=== PATIENT | female | born 1950 | race African-American/Black ===

== ENCOUNTER 2017-04-25 10:10 | Observation (INO) | payer OTHER ==
[2017-04-25] MEDS ORDERED: SODIUM CHLORIDE 0.9% 1,000 ML IV STA (10:58)
[2017-04-25] MEDS ORDERED: MORPHINE SULFATE 4 MG/ML SYRINGE IV STA ×2 (10:58→12:41)
[2017-04-25] MEDS ORDERED: ONDANSETRON ODT 4 MG TAB PO STA (10:58)
[2017-04-25 11:49] LABS: Basophils % (A) 0 %; CH 32.4; CHCM 32.9; Eosinophils # (A) 0.1 k/uL (0-0.7); Eosinophils % (A) 1 %; HCT 42.5 % (34.0-46.0); HDW 2.39; HGB 13.8 gm/dL (11.4-16.0); Luc # (Auto) 0.11; Luc % (Auto) 1; Lymphocytes # (A) 3.8 k/uL (1.0-4.8); Lymphocytes % (A) 44 %; MCH 32.2 pg (25.0-35.0); MCHC 32.5 g/dL (31.0-37.0); Mean Platelet Volume 8.4; Monocytes # (A) 0.4 k/uL (0-1.0); Monocytes % (A) 4 %; Neutrophils # (A) 4.4 k/uL (1.3-7.7); Neutrophils % (A) 50 %; RBC 4.29 m/uL (3.80-5.40); RDW 14.8 % (11.5-15.5); WBC 8.8 k/uL (3.8-10.6); WBC (Perox) 8.38
--- NOTE | 2017-04-25 11:53 | XR ---
EXAMINATION TYPE: XR chest 2V DATE OF EXAM: 04/25/2017 COMPARISON: 12/26/2015 HISTORY: Chest pain and back pain for 3 days with no known injury TECHNIQUE: Frontal and lateral views of the chest are obtained. FINDINGS: There is no focal air space opacity, pleural effusion, or pneumothorax seen. The cardiac silhouette size is within normal limits. The osseous structures are intact. IMPRESSION: No acute cardiopulmonary process.
[2017-04-25 12:02] LABS: ALT 28 U/L (9-52); AST 17 U/L (14-36); Alkaline Phosphatase 64 U/L (38-126); Anion Gap 5 mmol/L; Blood Urea Nitrogen 15 mg/dL (7-17); Calcium 9.2 mg/dL (8.4-10.2); Carbon Dioxide 30 mmol/L (22-30); Chloride 107 mmol/L (98-107); Glucose 85 mg/dL (74-99); Non-African American GFR(MDRD) >60 (>60 ml/min/1.73 sqM); Potassium 3.9 mmol/L (3.5-5.1); Sodium 142 mmol/L (137-145); Total Bilirubin 0.3 mg/dL (0.2-1.3); Total Protein 6.5 g/dL (6.3-8.2)
[2017-04-25] MEDS ORDERED: NITROGLYCERIN OINT 1 INCH/GM PACKET TOPICAL STA (12:41)
--- NOTE | 2017-04-25 12:50 | ED ---
General Adult HPI - General Chief complaint: Back Pain/Injury Stated complaint: back pain Time Seen by Provider: 04/25/17 10:29 Source: patient Mode of arrival: wheelchair Limitations: no limitations - History of Present Illness Initial comments: X-ray 6 years old lady with history of CVA, hypertension and history of Coumadin toxicity presented with right-sided chest pain, pain is worse with deep breaths. She denies any trauma to the chest wall, no fall no car accidents. Eyes any fever no chills she is not coughing up a bunch of phlegm and she denies any rash on the anterior or posterior chest wall. Review of systems are otherwise unremarkable - Related Data Home Medications Medication Instructions Recorded Confirmed Amitriptyline HCl [Elavil] 100 mg PO HS 12/25/15 04/25/17 Gabapentin [Neurontin] 300 mg PO BID 12/25/15 04/25/17 HYDROcodone/APAP 7.5-325MG [[place] 1 tab PO BID PRN 12/25/15 04/25/17 7.5-325] amLODIPine BESYLATE [Norvasc] 10 mg PO DAILY 12/25/15 04/25/17 Docusate [Colace] 100 mg PO BID PRN 04/25/17 04/25/17 Ergocalciferol [Vitamin D2] 50,000 unit PO TH 04/25/17 04/25/17 Oxybutynin ER [Ditropan Xl] 10 mg PO DAILY 04/25/17 04/25/17 Allergies Allergy/AdvReac Type Severity Reaction Status Date / Time Penicillins Allergy Rash/Hives- Verified 04/25/17 10:54 SWELLS UP AT SITE Review of Systems ROS Statement: Those systems with pertinent positive or pertinent negative responses have been documented in the HPI. ROS Other: All systems not noted in ROS Statement are negative. Past Medical History Past Medical History: Asthma, CVA/TIA, Hyperlipidemia, Hypertension, Musculoskeletal Disorder, Pulmonary Embolus (PE) Additional Past Medical History / Comment(s): HX PE 2009? 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 ELBOW CROOKED- POOR CHANNELER OUTSOLE STRENGTH. YURIY FEET TOES AMPUTATED- HARD TO WALK FAR. ARTHRITIS History of Any Multi-Drug Resistant Organisms: None Reported Past Surgical History: Hysterectomy, Orthopedic Surgery Additional Past Surgical History / Comment(s): YURIY. FEET TOES AMPUTATED R/T OLMSTEAD BITE. Benign tumors removed from breast and shoulder. Past Anesthesia/Blood Transfusion Reactions: No Reported Reaction Past Psychological History: No Psychological Hx Reported Smoking Status: Current some day smoker Past Alcohol Use History: Occasional Past Drug Use History: None Reported - Past Family History Father Family Medical History: CVA/TIA, Hypertension, Myocardial Infarction ([place]) Mother Family Medical History: CVA/TIA, Diabetes Mellitus, Hypertension, Myocardial Infarction ([place]) Sister(s) Additional Family Medical History / Comment(s): Sister #1-Cerebal Palsy , Sister #2 DM, HTN, General Exam - General Exam Comments Initial Comments: General: The patient is awake and alert, in no distress, and does not appear acutely ill. Skin: Skin is warm and dry and no rashes or lesions are noted. Eye: Pupils are equal, round and reactive to light, extra-ocular movements are intact; there is normal conjunctiva bilaterally. Ears, nose, mouth and throat: There are moist mucous membranes and no oral lesions. Neck: The neck is supple, there is no tenderness or JVD. Cardiovascular: There is a regular rate and rhythm. No murmur, rub or gallop is appreciated. She is tender to palpate over the right lateral chest wall as well as over the right scapula though did notice any signs of infection, cellulitis, abscess or viral infection like shingles Respiratory: To auscultation bilateral, no wheezing no rhonchi no distress respiratory doty noticed Gastrointestinal: Soft, non-distended, non-tender abdomen without masses or organomegaly noted. There is no rebound or guarding present. Bowel sounds are unremarkable. Back: There is no tenderness to palpation in the midline. There is no obvious deformity. Musculoskeletal: Normal ROM, no tenderness, There is no pedal edema. There is no calf tenderness or swelling. No cords were appreciated. Neurological: CN II-XII intact, Cranial nerves III through XII are intact. There are no obvious motor or sensory deficits. Coordination appears grossly intact. Speech is normal. Psychiatric: Cooperative, appropriate mood & affect, normal judgment. Limitations: no limitations Course Vital Signs 04/25/17 04/25/17 10:25 12:57 Temperature 98.2 F 97.0 F L Pulse Rate 71 75 Respiratory 15 18 Rate Blood Pressure 146/66 O2 Sat by Pulse 99 93 L Oximetry - Reevaluation(s) Reevaluation #1: 04/25/17 12:48 She is reassessed at 1245 she continued to complain about the pain on the right side of the chest that typically does smoke cardiac I have a troponin still pending d-dimer is negative but she has a terms of risk factors, considering that and will talk to extension course counselor and no plan to admit her for serial cardiac markers as well as a consult cardiology EKG Findings - EKG Comments: EKG Findings:: G is normal sinus rhythm ventricular rate is 66 [place] interval is 160 QRS duration is 84 QT/QTc is 4:30/450 review of this EKG does not reveal any ST elevation or ST depression Medical Decision Making - Lab Data Result diagrams: 04/25/17 11:33 04/25/17 11:33 Lab Results 04/25/17 04/25/17 04/25/17 Range/Units 11:33 11:33 11:33 WBC 8.8 (3.8-10.6) k/uL RBC 4.29 (3.80-5.40) m/uL Hgb 13.8 (11.4-16.0) gm/dL Hct 42.5 (34.0-46.0) % MCV 99.0 (80.0-100.0) fL MCH 32.2 (25.0-35.0) pg MCHC 32.5 (31.0-37.0) g/dL RDW 14.8 (11.5-15.5) % Plt Count 245 (150-450) k/uL Neutrophils % 50 % Lymphocytes % 44 % Monocytes % 4 % Eosinophils % 1 % Basophils % 0 % Neutrophils # 4.4 (1.3-7.7) k/uL Lymphocytes # 3.8 (1.0-4.8) k/uL Monocytes # 0.4 (0-1.0) k/uL Eosinophils # 0.1 (0-0.7) k/uL Basophils # 0.0 (0-0.2) k/uL PT (9.0-12.0) sec INR (<1.2) D-Dimer 0.36 (<0.60) mg/L FEU Sodium 142 (137-145) mmol/L Potassium 3.9 (3.5-5.1) mmol/L Chloride 107 (98-107) mmol/L Carbon Dioxide 30 (22-30) mmol/L Anion Gap 5 mmol/L BUN 15 (7-17) mg/dL Creatinine 0.75 (0.52-1.04) mg/dL Est GFR (MDRD) Af Amer >60 (>60 ml/min/1.73 sqM) Est GFR (MDRD) Non-Af >60 (>60 ml/min/1.73 sqM) Glucose 85 (74-99) mg/dL Calcium 9.2 (8.4-10.2) mg/dL Total Bilirubin 0.3 (0.2-1.3) mg/dL AST 17 (14-36) U/L ALT 28 (9-52) U/L Alkaline Phosphatase 64 (38-126) U/L Total Protein 6.5 (6.3-8.2) g/dL Albumin 3.6 (3.5-5.0) g/dL 04/25/17 Range/Units 11:33 WBC (3.8-10.6) k/uL RBC (3.80-5.40) m/uL Hgb (11.4-16.0) gm/dL Hct (34.0-46.0) % MCV (80.0-100.0) fL MCH (25.0-35.0) pg MCHC (31.0-37.0) g/dL RDW (11.5-15.5) % Plt Count (150-450) k/uL Neutrophils % % Lymphocytes % % Monocytes % % Eosinophils % % Basophils % % Neutrophils # (1.3-7.7) k/uL Lymphocytes # (1.0-4.8) k/uL Monocytes # (0-1.0) k/uL Eosinophils # (0-0.7) k/uL Basophils # (0-0.2) k/uL PT 10.5 (9.0-12.0) sec INR 1.0 (<1.2) D-Dimer (<0.60) mg/L FEU Sodium (137-145) mmol/L Potassium (3.5-5.1) mmol/L Chloride (98-107) mmol/L Carbon Dioxide (22-30) mmol/L Anion Gap mmol/L BUN (7-17) mg/dL Creatinine (0.52-1.04) mg/dL Est GFR (MDRD) Af Amer (>60 ml/min/1.73 sqM) Est GFR (MDRD) Non-Af (>60 ml/min/1.73 sqM) Glucose (74-99) mg/dL Calcium (8.4-10.2) mg/dL Total Bilirubin (0.2-1.3) mg/dL AST (14-36) U/L ALT (9-52) U/L Alkaline Phosphatase (38-126) U/L Total Protein (6.3-8.2) g/dL Albumin (3.5-5.0) g/dL Disposition Clinical Impression: Chest pain, Chest pain, pleuritic Disposition: ADMITTED IP TO THIS [facility] Referrals: Konrad Walker MD [Primary Care Provider] - 1-2 days
[2017-04-25 12:56] LABS: Prothrombin Time 10.5 sec (9.0-12.0)
[2017-04-25] MEDS ORDERED: NITROGLYCERIN SL TABS 0.4 MG TAB SUBLINGUAL PRN (13:12)
[2017-04-25] MEDS ORDERED: HEPARIN SODIUM,PORCINE 5,000 UNIT/ML 1 ML VIAL IV ONE (13:12)
[2017-04-25] MEDS ORDERED: HEPARIN SODIUM,PORCINE/D5W PMX 25,000 UNIT in DEXTROSE/WATER 1 500ML.BAG IV SCH (13:15)
[2017-04-25] MEDS ORDERED: DOCUSATE 100 MG CAP PO PRN (13:22)
[2017-04-25] MEDS: SODIUM CHLORIDE 0.9% 1,000 ML IV SCH (13:55)
[2017-04-25 14:50] LABS: Creatine Kinase 82 U/L (30-135)
--- NOTE | 2017-04-25 14:51 | P.HPIM ---
History of Present Illness H&P Date: 04/25/17 Chief Complaint: Right shoulder and chest pain 3 days This is a 66-year-old female with a known past medical history of TIA, PE, hypertension, asthma and smoking history. Patient presents to the emergency room with the complaint of right shoulder pain into the right side of her chest and breast area the past 3 days. Patient has limited range of motion of the arm. She is unable to lift the arm above her head and when she moves the arm across her chest she has significant pain. She is also tender with palpation of this right scapula. Her pain did radiate into the right side of the chest. She has been admitted to the observation unit and cardiac workup is in progress. EKG shows a normal sinus rhythm with a left atrial enlargement. First troponin is negative. Chest x-rays negative. Patient reports her last stress test was about 3 years ago and was told that it was okay. Patient does admit to having some shortness of breath when trying to take in a deep breath. She denies any diaphoresis. Denies any nausea or vomiting. Denies any dizziness or lightheadedness. Denies any fevers chills or sweats. Denies any bowel movement changes or urinary symptoms. Review of Systems Please refer to HPI otherwise unremarkable Past Medical History Past Medical History: Asthma, CVA/TIA, Hyperlipidemia, Hypertension, Osteoarthritis (OA), Pulmonary Embolus (PE) Additional Past Medical History / Comment(s): HX PE 2009 and has completed Coumadin treatment, 2 TIAs, PT STATES USES OXYGEN AT 2L/NC FOR 30 MINUTES TO 1 HOUR DAILY, URINE FREQUENCY & INCONTINENCE- WEARS A PULL UP- LT ARM DEFECTIVE FROM - RT ARM &. 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 History of Any Multi-Drug Resistant Organisms: None Reported Past Surgical History: Hysterectomy, Orthopedic Surgery Additional Past Surgical History / Comment(s): YURIY. FEET TOES AMPUTATED,benign tumors removed from L breast and L shoulder, colonoscopy, back injections for pain. Past Anesthesia/Blood Transfusion Reactions: No Reported Reaction Past Psychological History: No Psychological Hx Reported Additional Psychological History / Comment(s): PT LIVES WITH EX [place]HA[place] WHO IS ALSO HER LANDLORD. SHE USES NO ASSISTIVE DEVICE, SHE STATES SHE PROBLABLY SHOULD BUT DOESN'T LIKE TO. SHE DOES NOT DRIVE. SHE HAS A DAILY CAREGIVER WHO DRIVES HER, MANAGES HER MEDS, CLEANS THE HOME AND ASSISTES PT WITH BATHING. Smoking Status: Current some day smoker (Patient's reports that she has 1-2 cigarettes a month. She is working on quitting) Past Alcohol Use History: Occasional Additional Past Alcohol Use History / Comment(s): USE TO SMOKE 4-5 PPD BUT- FOR LAST 3 MONTHS SMOKES 2-3 TIMES A WEEK. PT ADMITS TO DRINKING 1-40 OUNCE BEER PER MONTH. DENIES ANY STREET DRUGS OR [employer] Past Drug Use History: None Reported - Past Family History Father Family Medical History: CVA/TIA, Hypertension, Myocardial Infarction ([place]) Mother Family Medical History: CVA/TIA, Diabetes Mellitus, Hypertension, Myocardial Infarction ([place]) Sister(s) Additional Family Medical History / Comment(s): Sister #1-Cerebal Palsy , Sister #2 DM, HTN, Medications and Allergies Home Medications Medication Instructions Recorded Confirmed Type Amitriptyline HCl [Elavil] 100 mg PO HS 12/25/15 04/25/17 History Gabapentin [Neurontin] 300 mg PO BID 12/25/15 04/25/17 History HYDROcodone/APAP 7.5-325MG [[place] 1 tab PO BID PRN 12/25/15 04/25/17 History 7.5-325] amLODIPine BESYLATE [Norvasc] 10 mg PO DAILY 12/25/15 04/25/17 History Docusate [Colace] 100 mg PO BID PRN 04/25/17 04/25/17 History Ergocalciferol [Vitamin D2] 50,000 unit PO TH 04/25/17 04/25/17 History Oxybutynin ER [Ditropan Xl] 10 mg PO DAILY 04/25/17 04/25/17 History Allergies Allergy/AdvReac Type Severity Reaction Status Date / Time Penicillins Allergy Rash/Hives- Verified 04/25/17 10:54 SWELLS UP AT SITE Physical Exam Vitals: Vital Signs Temp Pulse Pulse Resp BP BP Pulse Ox 04/25/17 14:28 97.5 F L 71 18 133/66 92 L 04/25/17 13:55 97.2 F L 77 18 125/59 94 L 04/25/17 12:57 97.0 F L 75 18 93 L 04/25/17 10:25 98.2 F 71 15 146/66 99 Intake and Output 04/24/17 04/25/17 04/25/17 22:59 06:59 14:59 Other: Weight 72.3 kg Patient Weight 04/26/17 06:59 Weight 72.3 kg Head normocephalic Neck supple Lungs crackles at bases bilaterally Heart regular rate and rhythm S1-S2, no rub or gallop Abdomen is soft nontender nondistended positive bowel sounds no hepatosplenomegaly Extremities no edema of the lower extremities Neuro alert and orientated to 3 Musculoskeletal exam: Right shoulder is tender with palpation. Tenderness with palpation of the scapula. Patient has limited range of motion of the right arm. Arm is warm to touch. No evidence of skin abrasions. No rashes. Results CBC & Chem 7: 04/25/17 11:33 04/25/17 11:33 Thrombosis Risk Factor Assmnt - Choose All That Apply Any of the Below Risk Factors Present?: Yes Other Risk Factors: Yes Each Risk Factor Represents 2 Points: Age 61-74 years Other congenital or acquired thrombophilia - If yes, enter type in comment: No Thrombosis Risk Factor Assessment Total Risk Factor Score: 2 Thrombosis Risk Factor Assessment Level: Low Risk Assessment and Plan Plan: 1. Right-sided Chest and shoulder pain: Cardiac workup in progress. Patient is been placed on IV heparin. Admitted to the observation floor. Cardiology consulted. First troponin is negative. EKG showing a normal sinus rhythm. D- dimer within normal range. Continue to monitor cardiac enzymes. Continue aspirin 2. Right shoulder pain and limited range of motion. Patient denies any injury. X-ray right shoulder. Continue with the [place] for pain control. 3. Essential hypertension: Blood pressure stable continue Norvasc 4. Overactive bladder continue the ditropan XL 5. History of 2 TIAs recommend aspirin. 6. History of PE and has been treated with Coumadin. Patient reports being off of Coumadin now for about a year 7. Nicotine dependence: Discussed smoking cessation for greater than 3 minutes. Patient is working on quitting smoking. She reports that she is smoking only 1-2 cigarettes a month. 8. GI prophylaxis Pepcid and DVT prophylaxis IV heparin Time with Patient: Greater than 30 (Greater than 50% of the total time spent in counseling and coordination of care.I performed an examination of the patient and discussed their management with the physician Senior Compensation Analyst. I have reviewed the Physician Senior Compensation Analyst's notes and agree with the documented findings and plan of care)
[2017-04-25 15:00] LABS: Troponin I <0.012 ng/mL (0.000-0.034)
--- NOTE | 2017-04-25 15:25 | XR ---
Right shoulder HISTORY: Pain 3 views of the right shoulder, no comparisons There is arthropathy present at the acromioclavicular joint. Remodeling is also present at the glenoh umeral joint with some joint space loss. Alignment and bone mineralization are maintained. Right lung apex as visualized is normal. No fracture or dislocation. IMPRESSION: Correlate for impingement. Suspect osteoarthritic change, correlate for possible remote t rauma causing the remodeling.
[2017-04-25] MEDS: HYDROcodone/APAP 7.5-325MG 1 EACH TAB PO PRN (17:22)
[2017-04-25] MEDS ORDERED: HEPARIN SODIUM,PORCINE 5,000 UNIT/ML 1 ML VIAL IV PRN (19:09)
[2017-04-25] MEDS: GABAPENTIN 300 MG CAP PO SCH (19:44)
[2017-04-25] MEDS: MORPHINE SULFATE 2 MG/ML SYRINGE IVP PRN (19:44)
[2017-04-25] MEDS: AMITRIPTYLINE HCL 50 MG TAB PO SCH (19:44)
[2017-04-26 00:43] LABS: Creatine Kinase 68 U/L (30-135)
[2017-04-26 00:55] LABS: Troponin I <0.012 ng/mL (0.000-0.034)
[2017-04-26 02:29] LABS: Basophils % (A) 0 %; CH 32.1; CHCM 31.4; Eosinophils # (A) 0.1 k/uL (0-0.7); Eosinophils % (A) 1 %; HCT 42.5 % (34.0-46.0); HDW 2.36; HGB 13.1 gm/dL (11.4-16.0); Luc # (Auto) 0.14; Luc % (Auto) 2; Lymphocytes # (A) 3.7 k/uL (1.0-4.8); Lymphocytes % (A) 46 %; MCH 31.7 pg (25.0-35.0); MCHC 30.9 g/dL (31.0-37.0); MCV 102.8 fL (80.0-100.0); Macrocytosis Slight; Mean Platelet Volume 8.4; Monocytes # (A) 0.4 k/uL (0-1.0); Monocytes % (A) 5 %; Neutrophils # (A) 3.7 k/uL (1.3-7.7); Neutrophils % (A) 46 %; RBC 4.13 m/uL (3.80-5.40); RDW 14.6 % (11.5-15.5); WBC 8.1 k/uL (3.8-10.6); WBC (Perox) 8.51
[2017-04-26 02:45] LABS: Anion Gap 9 mmol/L; Blood Urea Nitrogen 13 mg/dL (7-17); Calcium 9.6 mg/dL (8.4-10.2); Carbon Dioxide 31 mmol/L (22-30); Chloride 103 mmol/L (98-107); Cholesterol 184 mg/dL (<200); Glucose 110 mg/dL (74-99); HDL Cholesterol 83 mg/dL (40-60); Non-African American GFR(MDRD) >60 (>60 ml/min/1.73 sqM); Sodium 143 mmol/L (137-145)
[2017-04-26] MEDS: MORPHINE SULFATE 2 MG/ML SYRINGE IVP PRN ×4 (04:31→21:41)
[2017-04-26] MEDS ORDERED: AMINOPHYLLINE 500 MG/20 ML VIAL IV PRN (08:45)
[2017-04-26] MEDS ORDERED: ASPIRIN 325 MG TAB PO SCH (09:00)
[2017-04-26] MEDS: HYDROcodone/APAP 7.5-325MG 1 EACH TAB PO PRN ×2 (09:00→20:33)
[2017-04-26] MEDS ORDERED: REGADENOSON 0.4 MG/5 ML SYRINGE IV ONE (09:00)
--- NOTE | 2017-04-26 10:13 | P.CRDCN ---
History of Present Illness Consult date: 04/26/17 History of present illness: This is a 66-year-old -[place] female who presented to the emergency department with complaints of right epigastric pain radiates to the right shoulder, right arm and right upper back. She is found to be tender on palpation to the right shoulder and upper back. Her pain is made worse by movement. The pain has been ongoing 3 days. She denies any trauma. She is unable to verbalize any alleviating or aggravating factors. EKG shows sinus mechanism. Check x-rays negative for any acute pulmonary process. X-ray of the right shoulder indicates possible osteoarthritic changes and recommends follow-up for possible impingement. Troponins are negative 3. D-dimer is 0.36. She states she has never seen a wardrobe mistress for any reason. Her last stress test was many years ago. 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 She takes Norvasc 10 mg for her blood pressure control. Review of Systems REVIEW OF SYSTEMS: Patient denies any chest discomfort. No shortness of breath. No diaphoresis. He denies headache, dizziness, blurred vision, double vision. No dyspnea on exertion. No nausea, vomiting. No hematochezia. No hematemesis. Denies any black stools or blood in his stools. No syncope. No palpitations. No cough. No recent fever or chills. Denies dysuria or hematuria. No muscle weakness or numbness. Past Medical History Past Medical History: Asthma, CVA/TIA, Hyperlipidemia, Hypertension, Osteoarthritis (OA), Pulmonary Embolus (PE) Additional Past Medical History / Comment(s): HX PE 2009 and has completed Coumadin treatment, 2 TIAs, PT STATES USES OXYGEN AT 2L/NC FOR 30 MINUTES TO 1 HOUR DAILY, URINE FREQUENCY & INCONTINENCE- WEARS A PULL UP- LT ARM DEFECTIVE FROM - RT ARM &. ELBOW CROOKED- POOR REVENUE STAMPER STRENGTH-PT DOES NOT KNOW CAUSE BUT THE R ARM HAS BEEN LIKE THIS FOR YEARS, YURIY FEET TOES AMPUTATED DUE TO FROSTBITE- HARD TO WALK FAR, GENERALIZED ARTHRITIS, CHRONIC BACK/LEG AND BILATERAL FEET PAIN. History of Any Multi-Drug Resistant Organisms: None Reported Past Surgical History: Hysterectomy, Orthopedic Surgery Additional Past Surgical History / Comment(s): YURIY. FEET TOES AMPUTATED,benign tumors removed from L breast and L shoulder, colonoscopy, back injections for pain. Past Anesthesia/Blood Transfusion Reactions: No Reported Reaction Past Psychological History: No Psychological Hx Reported Additional Psychological History / Comment(s): PT LIVES WITH EX RADHA-IN-[place]W WHO IS ALSO HER LANDLORD. SHE USES NO ASSISTIVE DEVICE, SHE STATES SHE PROBLABLY SHOULD BUT DOESN'T LIKE TO. SHE DOES NOT DRIVE. SHE HAS A DAILY CAREGIVER WHO DRIVES HER, MANAGES HER MEDS, CLEANS THE HOME AND ASSISTES PT WITH BATHING. Smoking Status: Current some day smoker (Patient's reports that she has 1-2 cigarettes a month. She is working on quitting) Past Alcohol Use History: Occasional Additional Past Alcohol Use History / Comment(s): USE TO SMOKE 4-5 PPD BUT- FOR LAST 3 MONTHS SMOKES 2-3 TIMES A WEEK. PT ADMITS TO DRINKING 1-40 OUNCE BEER PER MONTH. DENIES ANY STREET DRUGS OR MEDICA MARIJUANA Past Drug Use History: None Reported - Past Family History Father Family Medical History: CVA/TIA, Hypertension, Myocardial Infarction ([place]) Mother Family Medical History: CVA/TIA, Diabetes Mellitus, Hypertension, Myocardial Infarction ([place]) Sister(s) Additional Family Medical History / Comment(s): Sister #1-Cerebal Palsy , Sister #2 DM, HTN, Medications and Allergies Home Medications Medication Instructions Recorded Confirmed Type Amitriptyline HCl [Elavil] 100 mg PO HS 12/25/15 04/25/17 History Gabapentin [Neurontin] 300 mg PO BID 12/25/15 04/25/17 History HYDROcodone/APAP 7.5-325MG [[place] 1 tab PO BID PRN 12/25/15 04/25/17 History 7.5-325] amLODIPine BESYLATE [Norvasc] 10 mg PO DAILY 12/25/15 04/25/17 History Docusate [Colace] 100 mg PO BID PRN 04/25/17 04/25/17 History Ergocalciferol [Vitamin D2] 50,000 unit PO TH 04/25/17 04/25/17 History Oxybutynin ER [Ditropan Xl] 10 mg PO DAILY 04/25/17 04/25/17 History Allergies Allergy/AdvReac Type Severity Reaction Status Date / Time Penicillins Allergy Rash/Hives- Verified 04/25/17 10:54 SWELLS UP AT SITE Physical Exam Vitals: Vital Signs Temp Pulse Pulse Pulse Resp BP BP 04/26/17 08:00 98 F 73 15 189/79 04/26/17 03:57 97.6 F 76 16 155/69 04/25/17 23:25 18 04/25/17 23:22 98.0 F 74 18 124/66 04/25/17 19:27 18 04/25/17 19:17 97.8 F 74 18 152/70 04/25/17 14:28 97.5 F L 71 18 133/66 04/25/17 13:55 97.2 F L 77 18 125/59 04/25/17 12:57 97.0 F L 75 18 04/25/17 10:25 98.2 F 71 15 146/66 Pulse Ox 04/26/17 08:00 91 L 04/26/17 03:57 94 L 04/25/17 23:25 04/25/17 23:22 93 L 04/25/17 19:27 04/25/17 19:17 93 L 04/25/17 14:28 92 L 04/25/17 13:55 94 L 04/25/17 12:57 93 L 04/25/17 10:25 99 Intake and Output 04/25/17 04/26/17 04/26/17 22:59 06:59 14:59 Intake Total 950.78 350 Balance 950.78 350 Intake: IV 160 250 Heparin Sodium,Porcine/ 80 110 D5w Pmx 25,000 unit In Dextrose/Water 1 500ml. bag @ 12 UNITS/KG/HR 16. 87 mls/hr IV .Q24H [facility] Rx #:[id number] Sodium Chloride 0.9% 1, 80 140 000 ml @ 20 mls/hr IV . Q24H [facility] Rx#:[id number] Intake, IV Titration 110.78 Amount Heparin Sodium,Porcine/ 110.78 D5w Pmx 25,000 unit In Dextrose/Water 1 500ml. bag @ 12 UNITS/KG/HR 16. 87 mls/hr IV .Q24H [facility] Rx #:[id number] Oral 680 100 Other: Voiding Method Toilet Toilet Diaper Diaper Incontinent Incontinent # Voids 2 2 GENERAL: This is a 66-year-old female in no apparent distress at the time of my examination. HEENT: Head is atraumatic, normocephalic. Pupils are equal, round. Sclerae anicteric. Conjunctivae are clear. Mucous membranes of the mouth are moist. Neck is supple. There is no jugular venous distention. No carotid bruit is heard. LUNGS: Clear to auscultation and precussion. Right shoulder and upper back tenderness is noted on palpation and with deep breathing. HEART: Regular rate and rhythm without murmurs, rubs or gallops. S1 and S2 heard. ABDOMEN: Soft, nontender. Bowel sounds are heard. No organomegaly noted. EXTREMITIES: 2+ peripheral pulses with no evidence of peripheral edema and no calf tenderness noted. NEUROLOGIC: Patient is awake, alert and oriented x3. Results 04/26/17 02:20 04/26/17 02:20 Cardiac Enzymes 04/25/17 04/25/17 04/25/17 Range/Units 11:33 11:33 14:03 AST 17 (14-36) U/L CK-MB (CK-2) 1.0 (0.0-2.4) ng/mL Troponin I <0.012 <0.012 (0.000-0.034) ng/mL 04/25/17 Range/Units 23:43 AST (14-36) U/L CK-MB (CK-2) 1.0 (0.0-2.4) ng/mL Troponin I <0.012 (0.000-0.034) ng/mL Coagulation 04/25/17 04/25/17 04/26/17 Range/Units 11:33 19:44 02:20 PT 10.5 (9.0-12.0) sec APTT 39.7 H 66.5 H (22.0-30.0) sec Lipids 04/26/17 Range/Units 02:20 Triglycerides 48 (<150) mg/dL Cholesterol 184 (<200) mg/dL HDL Cholesterol 83 H (40-60) mg/dL CBC 04/25/17 04/26/17 Range/Units 11:33 02:20 WBC 8.8 8.1 (3.8-10.6) k/uL RBC 4.29 4.13 (3.80-5.40) m/uL Hgb 13.8 13.1 (11.4-16.0) gm/dL Hct 42.5 42.5 (34.0-46.0) % Plt Count 245 224 (150-450) k/uL Comprehensive Metabolic Panel 04/25/17 04/26/17 Range/Units 11:33 02:20 Sodium 142 143 (137-145) mmol/L Potassium 3.9 4.0 (3.5-5.1) mmol/L Chloride 107 103 (98-107) mmol/L Carbon Dioxide 30 31 H (22-30) mmol/L BUN 15 13 (7-17) mg/dL Creatinine 0.75 0.90 (0.52-1.04) mg/dL Glucose 85 110 H (74-99) mg/dL Calcium 9.2 9.6 (8.4-10.2) mg/dL AST 17 (14-36) U/L ALT 28 (9-52) U/L Alkaline Phosphatase 64 (38-126) U/L Total Protein 6.5 (6.3-8.2) g/dL Albumin 3.6 (3.5-5.0) g/dL Current Medications Generic Name Dose Route Start Last Admin Trade Name Freq PRN Reason Stop Dose Admin Hydrocodone Bitart/Acetaminophen 1 each 04/25/17 13:22 04/25/17 17:22 [place] 7.5-325 PO 1 each BID PRN Administration Pain Amitriptyline HCl 100 mg 04/25/17 21:00 04/25/17 19:44 Elavil PO 100 mg HS [facility] Administration Amlodipine Besylate 10 mg 04/26/17 09:00 Norvasc PO DAILY [facility] Aspirin 325 mg 04/26/17 09:00 Aspirin PO DAILY [facility] Docusate Sodium 100 mg 04/25/17 13:22 Colace PO BID PRN Constipation Ergocalciferol 50,000 unit 04/28/17 09:00 Vitamin D2 PO Th@0900 [facility] Famotidine 20 mg 04/26/17 09:00 Pepcid PO DAILY [facility] Gabapentin 300 mg 04/25/17 21:00 04/25/17 19:44 Neurontin PO 300 mg BID [facility] Administration Heparin Sodium (Porcine) 0 unit 04/25/17 19:09 04/25/17 20:33 Heparin IV 3,600 unit PER PROTOCOL PRN Administration Low PTT Protocol Heparin Sodium/Dextrose 25,000 500 mls @ 16.87 mls/hr 04/25/17 13:15 20:30 unit/ IV Solution IV 15 units/kg/hr .Q24H [facility] 21.09 mls/hr Protocol Titration 12 UNITS/KG/HR Sodium Chloride 1,000 mls @ 20 mls/hr 04/25/17 13:15 04/25/17 13:55 Saline 0.9% IV 20 mls/hr .Q24H [facility] Administration Morphine Sulfate 2 mg 04/25/17 13:12 04/26/17 04:31 Morphine Sulfate (Inj) IVP 2 mg Q5M PRN Administration Chest Pain Nitroglycerin 0.4 mg 04/25/17 13:12 Nitrostat SUBLINGUAL Q5M PRN Chest Pain Oxybutynin Chloride 10 mg 04/26/17 09:00 Ditropan Xl PO DAILY [facility] Intake and Output 04/25/17 04/26/17 04/26/17 22:59 06:59 14:59 Intake Total 950.78 350 Balance 950.78 350 Intake: IV 160 250 Heparin Sodium,Porcine/ 80 110 D5w Pmx 25,000 unit In Dextrose/Water 1 500ml. bag @ 12 UNITS/KG/HR 16. 87 mls/hr IV .Q24H [facility] Rx #:[id number] Sodium Chloride 0.9% 1, 80 140 000 ml @ 20 mls/hr IV . Q24H [facility] Rx#:[id number] Intake, IV Titration 110.78 Amount Heparin Sodium,Porcine/ 110.78 D5w Pmx 25,000 unit In Dextrose/Water 1 500ml. bag @ 12 UNITS/KG/HR 16. 87 mls/hr IV .Q24H [facility] Rx #:[id number] Oral 680 100 Other: Voiding Method Toilet Toilet Diaper Diaper Incontinent Incontinent # Voids 2 2 04/26/17 02:20 04/26/17 02:20 - EKG Interpretation EKG: sinus rhythm (Left atrial enlargement lead V1) Assessment and Plan Plan: ASSESSMENT 1. Atypical chest pain. 2. History of essential hypertension PLAN 1. We will proceed with an echocardiogram of the heart as well as a Lexiscan. If these tests come back normal the patient is stable from a cardiac standpoint to be discharged home. She can follow with Dr. JEAN Han in the office in 2 weeks. Possible gallbladder involvement due to presentation. Nurse Practitioner note has been reviewed, I agree with a documented findings and plan of care. Patient was seen and examined. .
--- NOTE | 2017-04-26 11:09 | ECHOF ---
Referral Reason:chest pain MEASUREMENTS -------- HEIGHT: 167.6 cm WEIGHT: 72.1 kg BP: 189/79 IVSd: 1.4 cm (0.6 - 1.1) LVIDd: 3.5 cm (3.9 - 5.3) LVPWd: 1.4 cm (0.6 - 1.1) IVSs: 1.8 cm LVIDs: 2.2 cm LVPWs: 1.9 cm LAESV Index (A-L): 30.67 ml/m Ao Diam: 2.7 cm (2.0 - 3.7) AV Cusp: 2.1 cm (1.5 - 2.6) LA Diam: 3.2 cm (2.7 - 3.8) MV EXCURSION: 12.451 mm (> 18.000) MV EF SLOPE: 39 mm/s (70 - 150) EPSS: 0.2 cm MV E Cullen: 0.81 m/s MV DecT: 233 ms MV A Cullen: 1.14 m/s MV E/A Ratio: 0.71 AR PHT: 188 ms RAP: 5.00 mmHg RVSP: 20.74 mmHg FINDINGS -------- Sinus rhythm. This was a technically good study. There is moderate concentric left ventricular hypertrophy. Overall left ventricular systolic function is normal with, an EF between 55 - 60 %. The right ventricle is normal in size and function. The left atrium is normal in size. The right atrium is normal in size. Aortic valve is trileaflet and is mildly thickened. Trace amount of aortic regurgitation. The mitral valve leaflets are mildly thickened. Mild mitral annular calcification present. Mild mitral regurgitation is present. Mild tricuspid regurgitation present. The right ventricular systolic pressure, as measured by Doppler, is 20.74mmHg. Pulmonic valve appears structurally normal. The aortic root size is normal. Normal inferior vena cava with normal inspiratory collapse consistent with estimated right atrial pressure of 5 mmHg. There is a small, generalized pericardial effusion present. CONCLUSIONS -------- 1. Sinus rhythm. 2. The mitral valve leaflets are mildly thickened. 3. Mild mitral annular calcification present. 4. Mild mitral regurgitation is present. 5. Mild tricuspid regurgitation present. 6. The right ventricular systolic pressure, as measured by Doppler, is 20.74mmHg. 7. Pulmonic valve appears structurally normal. 8. The aortic root size is normal. 9. Normal inferior vena cava with normal inspiratory collapse consistent with estimated right atrial pressure of 5 mmHg. 10. There is a small, generalized pericardial effusion present. 11. This was a technically good study. 12. There is moderate concentric left ventricular hypertrophy. 13. Overall left ventricular systolic function is normal with, an EF between 55 - 60 %. 14. The right ventricle is normal in size and function. 15. The left atrium is normal in size. 16. The right atrium is normal in size. 17. Aortic valve is trileaflet and is mildly thickened. 18. Trace amount of aortic regurgitation. PERIANESTHESIA MANAGER: Allegra Mcduffie RDCS
[2017-04-26] MEDS: GABAPENTIN 300 MG CAP PO SCH ×2 (11:18→20:32)
[2017-04-26] MEDS: amLODIPine 10 MG TAB PO SCH (11:18)
[2017-04-26] MEDS: FAMOTIDINE 20 MG TAB PO SCH (11:18)
[2017-04-26] MEDS: OXYBUTYNIN 10 MG TAB.ER.24 PO SCH (11:18)
--- NOTE | 2017-04-26 12:20 | P.PN ---
Subjective Patient is still complaining of significant right shoulder pain. She just returned from a cardiac stress test. There is tenderness to palpation to the lateral and posterior aspect of the right shoulder. There is limited range of motion secondary to pain with elevating the right arm. Objective - Vital Signs Vital signs: Vital Signs Temp 98.3 F 04/26/17 12:00 Pulse 66 04/26/17 12:00 Resp 14 04/26/17 12:00 BP 166/79 04/26/17 12:00 Pulse Ox 92 L 04/26/17 12:00 Intake & Output 04/25/17 04/26/17 04/26/17 18:59 06:59 18:59 Intake Total 480 820.78 Balance 480 820.78 Weight 72.3 kg Intake: IV 410 Heparin Sodium,Porcine/ 190 D5w Pmx 25,000 unit In Dextrose/Water 1 500ml. bag @ 12 UNITS/KG/HR 16. 87 mls/hr IV .Q24H [facility] Rx #:[id number] Sodium Chloride 0.9% 1, 220 000 ml @ 20 mls/hr IV . Q24H [facility] Rx#:[id number] Intake, IV Titration 110.78 Amount Heparin Sodium,Porcine/ 110.78 D5w Pmx 25,000 unit In Dextrose/Water 1 500ml. bag @ 12 UNITS/KG/HR 16. 87 mls/hr IV .Q24H [facility] Rx #:[id number] Oral 480 300 Other: Voiding Method Toilet Toilet Toilet Diaper Diaper Diaper Incontinent Incontinent Incontinent # Voids 2 - Exam General: The patient is awake and alert, in no distress Eye: there is normal conjunctiva bilaterally. Neck: The neck is supple, there is no JVD. Cardiovascular: Normal S1-S2, no S3-S4, no murmurs. Respiratory: Lungs clear to auscultation bilaterally Gastrointestinal: Abdomen is soft, nontender Musculoskeletal: There is no pedal edema. Neurological:. Speech is normal. Skin: Skin is warm and dry - Labs CBC & Chem 7: 04/26/17 02:20 04/26/17 02:20 Labs: Abnormal Lab Results - Last 24 Hours (Table) 04/25/17 04/26/17 04/26/17 Range/Units 19:44 02:20 02:20 MCV 102.8 H (80.0-100.0) fL MCHC 30.9 L (31.0-37.0) g/dL APTT 39.7 H (22.0-30.0) sec Carbon Dioxide 31 H (22-30) mmol/L Glucose 110 H (74-99) mg/dL HDL Cholesterol 83 H (40-60) mg/dL 04/26/17 Range/Units 02:20 MCV (80.0-100.0) fL MCHC (31.0-37.0) g/dL APTT 66.5 H (22.0-30.0) sec Carbon Dioxide (22-30) mmol/L Glucose (74-99) mg/dL HDL Cholesterol (40-60) mg/dL Assessment and Plan Plan: 1. Right-sided Chest and shoulder pain: First awaiting cardiac stress test results, troponin is negative. EKG showing a normal sinus rhythm. D-dimer within normal range. 2. Right shoulder pain and limited range of motion. Patient denies any injury. X-ray right shoulder showed evidence of impingement. Continue with the [place] for pain control. we will consult orthopedic for further evaluation if patient may benefit from steroid injection. 3. Essential hypertension: Blood pressure stable continue Norvasc 4. Overactive bladder continue the ditropan XL 5. History of 2 TIAs recommend aspirin. 6. History of PE and has been treated with Coumadin. Patient reports being off of Coumadin now for about a year 7. Nicotine dependence: Discussed smoking cessation for greater than 3 minutes. Patient is working on quitting smoking. She reports that she is smoking only 1-2 cigarettes a month.
[2017-04-26] MEDS: COLCHICINE 0.6 MG TAB PO SCH ×2 (12:54→20:32)
--- NOTE | 2017-04-26 13:18 | EST ---
DATE OF SERVICE: 04/26/2017 TYPE OF REPORT: Lexiscan Cardiolite Stress Test INDICATION: Chest pain BASELINE HEART RATE: 66 BASELINE BLOOD PRESSURE: 161/79 MAXIMUM HEART RATE: 81 MAXIMUM BLOOD PRESSURE: 216/58 85% MPHR: - 100% MPHR: - METS: - MAXIMUM STAGE REACHED: - TOTAL EXERCISE TIME: - Baseline EKG revealed sinus mechanism without significant ST-T changes. With Lexiscan administration, patient had isolate PVC's. No major symptoms other than transient shortness of breath. The systolic blood pressure went up to 216/ 58 and then came back to 157/61. EKG remained unremarkable. By EKG criteria, this is an unremarkable Lexiscan stress test. The nuclear scan results, which are more pertinent, will be reported by the radiologist. JACQUELINE
--- NOTE | 2017-04-26 13:29 | NM ---
EXAMINATION TYPE: NM stress lexiscan cardiolite DATE OF EXAM: 04/26/2017 COMPARISON: NONE HISTORY: Chest pain TECHNIQUE: After the intravenous administration of 10.75 mCi Tc 99m Sestamibi - Cardiolite resting S PECT images acquired 45 minutes post injection. The patient received 0.4mg Lexiscan, 24.7 mCi Tc 99m Sestamibi - Stress images obtained [address] injection FINDINGS: Review of stress and rest SPECT images demonstrates decreased uptake on stress images along the infer ior wall of the left ventricle as compared to rest. Gated analysis shows normal wall motion with an estimated left ventricular ejection fraction of 41 %. IMPRESSION: Pharmacologically induced left ventricular myocardial ischemia suspected along the inferior wall of t he left ventricle, ejection fraction 41%
[2017-04-26] MEDS: SODIUM CHLORIDE 0.9% 1,000 ML IV SCH (18:27)
[2017-04-26] MEDS: AMITRIPTYLINE HCL 50 MG TAB PO SCH (20:32)
[2017-04-27 03:04] LABS: Basophils % (A) 0 %; CH 31.6; CHCM 31.7; Eosinophils # (A) 0.1 k/uL (0-0.7); Eosinophils % (A) 1 %; HCT 38.3 % (34.0-46.0); HDW 2.37; HGB 12.5 gm/dL (11.4-16.0); Luc % (Auto) 2; Lymphocytes # (A) 2.6 k/uL (1.0-4.8); Lymphocytes % (A) 39 %; MCH 32.8 pg (25.0-35.0); MCHC 32.7 g/dL (31.0-37.0); MCV 100.3 fL (80.0-100.0); Mean Platelet Volume 7.6; Monocytes # (A) 0.3 k/uL (0-1.0); Monocytes % (A) 4 %; Neutrophils # (A) 3.5 k/uL (1.3-7.7); Neutrophils % (A) 54 %; RBC 3.82 m/uL (3.80-5.40); WBC 6.5 k/uL (3.8-10.6); WBC (Perox) 6.63
[2017-04-27 03:12] LABS: Anion Gap 7 mmol/L; Blood Urea Nitrogen 10 mg/dL (7-17); Calcium 9.6 mg/dL (8.4-10.2); Carbon Dioxide 30 mmol/L (22-30); Chloride 103 mmol/L (98-107); Glucose 107 mg/dL (74-99); Non-African American GFR(MDRD) >60 (>60 ml/min/1.73 sqM); Potassium 4.1 mmol/L (3.5-5.1); Sodium 140 mmol/L (137-145)
[2017-04-27] MEDS: MORPHINE SULFATE 2 MG/ML SYRINGE IVP PRN ×2 (03:36→12:59)
[2017-04-27] MEDS: HYDROcodone/APAP 7.5-325MG 1 EACH TAB PO PRN ×2 (07:44→20:25)
[2017-04-27] MEDS ORDERED: NITROGLYCERIN SL TABS 0.4 MG TAB SUBLINGUAL PRN (08:24)
[2017-04-27] MEDS ORDERED: ALPRAZolam 0.5 MG TAB PO PRN (08:24)
[2017-04-27] MEDS ORDERED: ATORVASTATIN 80 MG TAB PO STA (08:24)
[2017-04-27] MEDS ORDERED: ALPRAZolam 0.25 MG TAB PO PRN (08:24)
[2017-04-27] MEDS ORDERED: ASPIRIN 325 MG TAB PO STA (08:24)
[2017-04-27] MEDS ORDERED: SODIUM CHLORIDE 0.9% 1,000 ML in EMPTY BAG 1 BAG IV ONE (08:24)
[2017-04-27] MEDS: COLCHICINE 0.6 MG TAB PO SCH ×2 (08:31→20:25)
[2017-04-27] MEDS: amLODIPine 10 MG TAB PO SCH (08:31)
[2017-04-27] MEDS: ASPIRIN 81 MG CHEW PO SCH (08:31)
[2017-04-27] MEDS: FAMOTIDINE 20 MG TAB PO SCH (08:32)
[2017-04-27] MEDS: GABAPENTIN 300 MG CAP PO SCH ×2 (08:32→20:25)
[2017-04-27] MEDS ORDERED: METOPROLOL TARTRATE 25 MG TAB PO SCH (09:00)
--- NOTE | 2017-04-27 09:02 | P.CNOR ---
History of Present Illness - HPI Consult date: 04/27/17 History of present illness: This is a well-appearing 66-year-old female who was admitted for evaluation of chest pain and right shoulder pain. Orthopedics was consulted due to right shoulder pain. Patient states she has had right shoulder pain for years. Patient denies any new injury. Patient states the right shoulder hurts with any movement of the right upper extremity. Patient states she receives cortisone injections from her neurologist to the elbows and knees but has never had any treatment of the right shoulder. Patient denies any swelling, erythema , ecchymosis, numbness, weakness, tingling. Review of Systems See HPI. Past Medical History Past Medical History: Asthma, CVA/TIA, Hyperlipidemia, Hypertension, Osteoarthritis (OA), Pulmonary Embolus (PE) Additional Past Medical History / Comment(s): HX PE 2009 and has completed Coumadin treatment, 2 TIAs, PT STATES USES OXYGEN AT 2L/NC FOR 30 MINUTES TO 1 HOUR DAILY, URINE FREQUENCY & INCONTINENCE- WEARS A PULL UP- LT ARM DEFECTIVE FROM - RT ARM &. ELBOW CROOKED- POOR DOUGH PUNCHER STRENGTH-PT DOES NOT KNOW CAUSE BUT THE R ARM HAS BEEN LIKE THIS FOR YEARS, YURIY FEET TOES AMPUTATED DUE TO FROSTBITE- HARD TO WALK FAR, GENERALIZED ARTHRITIS, CHRONIC BACK/LEG AND BILATERAL FEET PAIN. History of Any Multi-Drug Resistant Organisms: None Reported Past Surgical History: Hysterectomy, Orthopedic Surgery Additional Past Surgical History / Comment(s): YURIY. FEET TOES AMPUTATED,benign tumors removed from L breast and L shoulder, colonoscopy, back injections for pain. Past Anesthesia/Blood Transfusion Reactions: No Reported Reaction Past Psychological History: No Psychological Hx Reported Additional Psychological History / Comment(s): PT LIVES WITH EX RADHA-IN-[place] WHO IS ALSO HER LANDLORD. SHE USES NO ASSISTIVE DEVICE, SHE STATES SHE PROBLABLY SHOULD BUT DOESN'T LIKE TO. SHE DOES NOT DRIVE. SHE HAS A DAILY CAREGIVER WHO DRIVES HER, MANAGES HER MEDS, CLEANS THE HOME AND ASSISTES PT WITH BATHING. Smoking Status: Current some day smoker (Patient's reports that she has 1-2 cigarettes a month. She is working on quitting) Past Alcohol Use History: Occasional Additional Past Alcohol Use History / Comment(s): USE TO SMOKE 4-5 PPD BUT- FOR LAST 3 MONTHS SMOKES 2-3 TIMES A WEEK. PT ADMITS TO DRINKING 1-40 OUNCE BEER PER MONTH. DENIES ANY STREET DRUGS OR MEDICA MARIJUANA Past Drug Use History: None Reported - Past Family History Father Family Medical History: CVA/TIA, Hypertension, Myocardial Infarction ([place]) Mother Family Medical History: CVA/TIA, Diabetes Mellitus, Hypertension, Myocardial Infarction ([place]) Sister(s) Additional Family Medical History / Comment(s): Sister #1-Cerebal Palsy , Sister #2 DM, HTN, Medications and Allergies Home Medications Medication Instructions Recorded Confirmed Type Amitriptyline HCl [Elavil] 100 mg PO HS 12/25/15 04/25/17 History Gabapentin [Neurontin] 300 mg PO BID 12/25/15 04/25/17 History HYDROcodone/APAP 7.5-325MG [[place] 1 tab PO BID PRN 12/25/15 04/25/17 History 7.5-325] amLODIPine BESYLATE [Norvasc] 10 mg PO DAILY 12/25/15 04/25/17 History Docusate [Colace] 100 mg PO BID PRN 04/25/17 04/25/17 History Ergocalciferol [Vitamin D2] 50,000 unit PO TH 04/25/17 04/25/17 History Oxybutynin ER [Ditropan Xl] 10 mg PO DAILY 04/25/17 04/25/17 History Allergies Allergy/AdvReac Type Severity Reaction Status Date / Time Penicillins Allergy Rash/Hives- Verified 04/25/17 10:54 SWELLS UP AT SITE Physical Examination On inspection of the right upper extremity there is no swelling, erythema or ecchymosis. Patient has tenderness to palpation over the lateral and posterior aspects of the right shoulder. Patient has difficulty with any movement of the right upper extremity. Patient is able to flex the right upper extremity to shoulder level. Neurovascular status intact. Results X-rays of the right shoulder are reviewed showing moderate-severe osteoarthritis of the right shoulder. No fracture or dislocation. - Labs Labs: Abnormal Lab Results - Last 24 Hours (Table) 04/27/17 04/27/17 Range/Units 02:42 02:42 MCV 100.3 H (80.0-100.0) fL Glucose 107 H (74-99) mg/dL H & H 04/25/17 04/26/17 04/27/17 Range/Units 11:33 02:20 02:42 Hgb 13.8 13.1 12.5 (11.4-16.0) gm/dL Hct 42.5 42.5 38.3 (34.0-46.0) % Coagulation 04/25/17 Range/Units 11:33 INR 1.0 (<1.2) Result Diagrams: 04/27/17 02:42 04/27/17 02:42 Assessment and Plan (1) Osteoarthritis of right shoulder Status: Acute Plan: #1. Physical therapy to the right upper extremity while the patient is in the hospital. #2. Discussed that patient may also benefit from cortisone injections. #3. Patient states she sees Dr. Wood for cortisone injections. Patient may follow-up as needed with Dr. John Ceron in the office. Patient is receptive to this plan.
[2017-04-27] MEDS ORDERED: LIDOCAINE 2% INJ 20 MG/ML (20 ML MDV) ONE (09:10)
[2017-04-27] MEDS ORDERED: diphenhydrAMINE 50 MG/ML 1 ML VIAL ONE (09:21)
[2017-04-27] MEDS ORDERED: MIDAZOLAM 2 MG/2 ML VIAL ONE (09:21)
[2017-04-27] MEDS ORDERED: IV FLUID CONTINUATION 1,000 ML IV ONE (09:30)
[2017-04-27] MEDS ORDERED: MIDAZOLAM 2 MG/2 ML VIAL IVP ONE (09:58)
[2017-04-27] MEDS ORDERED: diphenhydrAMINE 50 MG/ML 1 ML VIAL IVP ONE (09:58)
[2017-04-27] MEDS ORDERED: LIDOCAINE 2% INJ 20 MG/ML SQ ONE ×2 (10:03)
[2017-04-27] MEDS ORDERED: NITROGLYCERIN SL TABS 0.4 MG TAB SUBLINGUAL ONE ×4 (10:07→10:18)
[2017-04-27] MEDS ORDERED: IOHEXOL 350 MG/ML 125ML BOTTLE INJ ONE (10:22)
[2017-04-27] MEDS ORDERED: RX INFO: IV CONTRAST WAS GIVEN 1 EACH MISC MISCELLANE PRN (10:28)
[2017-04-27] MEDS ORDERED: SODIUM CHLORIDE 0.9% 1,000 ML IV SCH (10:30)
--- NOTE | 2017-04-27 12:21 | P.PN ---
Subjective patient is sleepy today when I saw her. She underwent left heart catheterization this morning. Objective - Vital Signs Vital signs: Vital Signs Temp 98.2 F 04/27/17 08:00 Pulse 71 04/27/17 08:00 Resp 16 04/27/17 08:00 BP 181/71 04/27/17 08:00 Pulse Ox 93 L 04/27/17 08:00 Intake & Output 04/26/17 04/27/17 04/27/17 18:59 06:59 18:59 Intake Total 480 600 150 Output Total 200 Balance 480 600 -50 Intake: IV 150 Oral 480 600 Output: Urine 200 Other: Voiding Method Toilet Toilet Toilet Diaper Diaper Diaper Incontinent Incontinent Incontinent # Voids 1 3 - Exam General: The patient is awake and alert, in no distress Eye: there is normal conjunctiva bilaterally. Neck: The neck is supple, there is no JVD. Cardiovascular: Normal S1-S2, no S3-S4, no murmurs. Respiratory: Lungs clear to auscultation bilaterally Gastrointestinal: Abdomen is soft, nontender Musculoskeletal: There is no pedal edema. Neurological:. Speech is normal. Skin: Skin is warm and dry - Labs CBC & Chem 7: 04/27/17 02:42 04/27/17 02:42 Labs: Abnormal Lab Results - Last 24 Hours (Table) 04/27/17 04/27/17 Range/Units 02:42 02:42 MCV 100.3 H (80.0-100.0) fL Glucose 107 H (74-99) mg/dL Assessment and Plan Plan: 1. Right-sided Chest and shoulder pain: patient had a borderline positive stress test and underwent left heart catheterizationshowing chronic RCA occlusion. No intervention attempted. Plan to manage medically. EKG showing a normal sinus rhythm. D-dimer within normal range. 2. Right shoulder pain and limited range of motion. Patient denies any injury. X-ray right shoulder showed evidence of impingement. Continue with the [place] for pain control. she was seen and evaluated by orthopedic. Plan to follow-up as outpatient for possible steroids injections. 3. Essential hypertension: Blood pressure stable continue Norvasc 4. Overactive bladder continue the ditropan XL 5. History of 2 TIAs recommend aspirin. 6. History of PE and has been treated with Coumadin. Patient reports being off of Coumadin now for about a year 7. Nicotine dependence: Discussed smoking cessation during this admission
[2017-04-27] MEDS: OXYBUTYNIN 10 MG TAB.ER.24 PO SCH (12:57)
[2017-04-27 13:07] VITALS: RESP 18
[2017-04-27] MEDS: SODIUM CHLORIDE 0.9% 1,000 ML IV SCH (19:40)
--- NOTE | 2017-04-27 20:15 | PN ---
Mrs. Sotelo is doing well. Today she is going to have a coronary angiography. I reviewed with her the risks, benefits, options and stress test findings which revealed evidence of inferior wall ischemia with mild decrease in ejection fraction. Risks, benefits and options related to coronary angiography were discussed in detail with the patient. She understands all details and wishes to proceed with the procedure. Vital signs are stable. There is no JVD or carotid bruit. S1, S2 heard normally. Lungs are clear. Abdomen and lower extremity exam was unchanged. JACQUELINE
[2017-04-27] MEDS: METOPROLOL TARTRATE 25 MG TAB PO SCH (20:25)
[2017-04-27] MEDS: AMITRIPTYLINE HCL 50 MG TAB PO SCH (20:25)
[2017-04-28 06:57] LABS: Basophils % (A) 0 %; CH 31.8; CHCM 32.1; Eosinophils # (A) 0.1 k/uL (0-0.7); Eosinophils % (A) 2 %; HCT 38.4 % (34.0-46.0); HDW 2.33; HGB 12.7 gm/dL (11.4-16.0); Luc # (Auto) 0.15; Luc % (Auto) 2; Lymphocytes # (A) 2.8 k/uL (1.0-4.8); Lymphocytes % (A) 44 %; MCH 32.8 pg (25.0-35.0); MCV 99.5 fL (80.0-100.0); Mean Platelet Volume 7.5; Monocytes # (A) 0.4 k/uL (0-1.0); Monocytes % (A) 6 %; Neutrophils # (A) 2.9 k/uL (1.3-7.7); Neutrophils % (A) 45 %; RBC 3.86 m/uL (3.80-5.40); RDW 13.9 % (11.5-15.5); WBC 6.4 k/uL (3.8-10.6); WBC (Perox) 6.56
[2017-04-28 07:14] LABS: Anion Gap 4 mmol/L; Blood Urea Nitrogen 12 mg/dL (7-17); Calcium 9.4 mg/dL (8.4-10.2); Carbon Dioxide 35 mmol/L (22-30); Chloride 102 mmol/L (98-107); Glucose 96 mg/dL (74-99); Non-African American GFR(MDRD) >60 (>60 ml/min/1.73 sqM); Potassium 4.4 mmol/L (3.5-5.1); Sodium 141 mmol/L (137-145)
--- NOTE | 2017-04-28 08:47 | CC ---
DATE OF PROCEDURE: 04/27/2017 PROCEDURE: Left heart catheterization, coronary angiography and left ventriculography. PERFORMED BY: Dr. Tomy Han. CLINICAL INFORMATION: Mrs. Kathy Sotelo is a 66-year-old lady with history of hypertension, hyperlipidemia who was seen by me yesterday with atypical chest pain. I advised a stress test with Lexiscan which revealed inferior wall reversible defect with mildly decreased ejection fraction. Echo revealed preserved systolic function. She was advised coronary angiography. Risks, benefits, options, rationale were discussed with the patient. There was no family available. PROCEDURE NOTE: Under local anesthesia and strict aseptic precautions, a 6 Bahraini introducer was placed in the right femoral artery. Using a standard Lizett catheters I performed coronary angiography and a pigtail catheter was used to perform an LV gram. The catheter and sheath was taken out and Angio- Seal device used to secure hemostasis and she was sent to the room in a stable condition. CARDIAC CATHETERIZATION FINDINGS: The left ventricular end-diastolic pressure was about 12 to 14 mmHg and there is no gradient across the aortic valve. CORONARY ANGIOGRAPHY FINDINGS: RIGHT CORONARY ARTERY: This is a dominant vessel, totally occluded in the mid portion was seen as a ( ) and appears to be a chronic occlusion. There is rich network of collaterals coming mostly from the distal RCA and also to some extent from circumflex and the entire distal RCA is opacified from collaterals. LEFT MAIN CORONARY ARTERY: Long disease-free vessel that bifurcates into LAD and circumflex. LEFT ANTERIOR DESCENDING CORONARY ARTERY: Good caliber vessel extends along the anterior wall, gives off septal and diagonal branches. It runs all the way to the apex supplying a sizeable amount of myocardium. Gives off several septal branches. There are 2 diagonal branches, both of which have a 30% to 40 % narrowing, but no critical stenosis is noted in the LAD system. There is a rich network of collaterals coming from the distal LAD opacifying the entire branches of the RCA almost to the mid portion. LEFT POSTERIOR CIRCUMFLEX CORONARY ARTERY: Technically, this is a nondominant vessel has about a 30% to 40% mid lesion and gives off 2 small branches and then also provides collaterals to the RCA system. The circumflex itself has a 40 % mid lesion. No significant stenosis is noted. It is a small nondominant vessel. LEFT VENTRICULOGRAM: This was performed in 30-degree [place] projection. There was a ventricular ectopy noted, but ejection fraction is normal and there is about 60% without mitral regurgitation. There was some PVC induced MR noted. FINAL IMPRESSION: This patient has normal filling pressures, normal ejection fraction of 60% without wall motion abnormality. There is a right dominant system with the right coronary artery that is totally occluded with rich and complete collateralization of the right coronary artery tended to be by mostly from the left anterior descending coronary artery and to some extent from circumflex. RECOMMENDATIONS: Findings were discussed with the patient at length. Her family was not available. I am recommending aggressive medical therapy with risk factor modification and she will be discharged tomorrow and I will be placing her on beta blockers, amlodipine and also statins. Patient was sent to the room in stable condition. She tolerated the procedure well without complications. Moderate conscious sedation was provided for a total duration of 25 minutes for this patient where she was monitored closely. JACQUELINE
[2017-04-28] MEDS ORDERED: LOSARTAN-HCTZ 50-12.5 MG 1 EACH TAB PO SCH (09:00)
[2017-04-28] MEDS ORDERED: ATORVASTATIN 40 MG TAB PO SCH (09:00)
[2017-04-28] MEDS ORDERED: ERGOCALCIFEROL 50,000 UNIT CAP PO SCH (09:00)
[2017-04-28] MEDS: ASPIRIN 81 MG CHEW PO SCH (09:21)
[2017-04-28] MEDS: GABAPENTIN 300 MG CAP PO SCH (09:21)
[2017-04-28] MEDS: amLODIPine 10 MG TAB PO SCH (09:21)
[2017-04-28] MEDS: COLCHICINE 0.6 MG TAB PO SCH (09:21)
[2017-04-28] MEDS: OXYBUTYNIN 10 MG TAB.ER.24 PO SCH (09:21)
[2017-04-28] MEDS: METOPROLOL TARTRATE 25 MG TAB PO SCH (09:22)
[2017-04-28] MEDS: FAMOTIDINE 20 MG TAB PO SCH (09:22)
[2017-04-28] MEDS: HYDROcodone/APAP 7.5-325MG 1 EACH TAB PO PRN (09:27)
[2017-04-28 11:01] VITALS: BP 138/60; PULSE 62; TEMP 98.6
--- NOTE | 2017-04-28 12:05 | P.DS ---
Providers Date of admission: 04/25/17 13:12 Expected date of discharge: 04/28/17 Attending physician: Konrad Walker Consults: 04/25/17 13:12 Consult Physician Urgent Consulting Provider: Raymond Guzman Consult Reason/Comments: Chest pain Do you want consulting provider notified?: Yes Primary care physician: [facility] Course: 1. Right-sided Chest and shoulder pain: Status post left heart catheterization showing normal ejection fraction of 60%. Totally occluded RCA with complete cauterization. Cardiology recommended aggressive medical therapy and risk factor modification. troponin is negative. EKG showing a normal sinus rhythm. D-dimer within normal range. 2. Right shoulder pain and limited range of motion. Patient denies any injury. X-ray right shoulder showed evidence of impingement. Continue with the [place] for pain control. we will consult orthopedic for further evaluation if patient may benefit from steroid injection. 3. Essential hypertension: Blood pressure stable continue Norvasc 4. Overactive bladder continue the ditropan XL 5. History of 2 TIAs recommend aspirin. 6. History of PE and has been treated with Coumadin. Patient reports being off of Coumadin now for about a year 7. Nicotine dependence: Discussed smoking cessation for greater than 3 minutes. Patient is working on quitting smoking. She reports that she is smoking only 1-2 cigarettes a month. Plan - Discharge Summary New Discharge Prescriptions: New Colchicine [Colcrys] 0.3 mg PO BID #30 tab Aspirin 81 mg PO DAILY #30 Atorvastatin [Lipitor] 40 mg PO DAILY #30 tab Metoprolol Tartrate [Lopressor] 25 mg PO BID #60 tab Continue amLODIPine BESYLATE [Norvasc] 10 mg PO DAILY Gabapentin [Neurontin] 300 mg PO BID HYDROcodone/APAP 7.5-325MG [Fallon 7.5-325] 1 tab PO BID PRN PRN Reason: Pain Amitriptyline HCl [Elavil] 100 mg PO HS Ergocalciferol [Vitamin D2 (DRISDOL)] 50,000 unit PO TH Oxybutynin ER [Ditropan Xl] 10 mg PO DAILY Docusate [Colace] 100 mg PO BID PRN PRN Reason: Constipation Discharge Medication List Amitriptyline HCl [Elavil] 100 mg PO HS 12/25/15 [History] Gabapentin [Neurontin] 300 mg PO BID 12/25/15 [History] HYDROcodone/APAP 7.5-325MG [Fallon 7.5-325] 1 tab PO BID PRN 12/25/15 [History] amLODIPine BESYLATE [Norvasc] 10 mg PO DAILY 12/25/15 [History] Docusate [Colace] 100 mg PO BID PRN 04/25/17 [History] Ergocalciferol [Vitamin D2 (DRISDOL)] 50,000 unit PO TH 04/25/17 [History] Oxybutynin ER [Ditropan Xl] 10 mg PO DAILY 04/25/17 [History] Colchicine [Colcrys] 0.3 mg PO BID #30 tab 04/26/17 [Rx] Aspirin 81 mg PO DAILY #30 04/28/17 [Rx] Atorvastatin [Lipitor] 40 mg PO DAILY #30 tab 04/28/17 [Rx] Metoprolol Tartrate [Lopressor] 25 mg PO BID #60 tab 04/28/17 [Rx] Follow up Appointment(s)/Referral(s): Arnold Han MD [STAFF PHYSICIAN] - 2 Weeks (Appt made for 05/12 for echo and appt 8:15. The office will call the patient for echo time) John Ceron DO [Doctor of Osteopathic Medicine] - As Needed Konrad Walker MD [Primary Care Provider] - 1 Week Patient Instructions/Handouts: *Surgery [facility] - After Heart Catheterization - Support Specialist Instructions Discharge Disposition: HOME SELF-CARE
--- NOTE | 2017-04-28 13:46 | P.PN ---
Subjective Patient is seen today resting comfortably in bed. She is status post right femoral approach cardiac catheterization yesterday with Dr. JEAN Han. Again the results were reviewed with the patient, she verbalized understanding. Objective - Vital Signs Vital signs: Vital Signs Temp 98.6 F 04/28/17 11:00 Pulse 62 04/28/17 12:00 Resp 18 04/28/17 12:00 BP 138/60 04/28/17 11:00 Pulse Ox 95 04/28/17 11:00 Intake & Output 04/27/17 04/28/17 04/28/17 18:59 06:59 18:59 Intake Total 390 1050 660 Output Total 200 Balance 190 1050 660 Intake: IV 150 Intake, IV Titration 300 Amount Sodium Chloride 0.9% 1, 300 000 ml @ 75 mls/hr IV . [id number] CHRISTINE Rx#:[id number] Oral 240 750 660 Output: Urine 200 Other: Voiding Method Toilet Toilet Toilet Diaper Diaper Diaper Incontinent Incontinent Incontinent # Voids 1 2 1 - Exam GENERAL: Well-appearing, well-nourished and in no acute distress. NECK: Supple without JVD or thyromegaly. LUNGS: Breath sounds clear to auscultation bilaterally and equal. No wheezes, rales or rhonchi. HEART: Regular rate and rhythm without murmurs, rubs or gallops. S1 and S2 heard. ABDOMEN: Soft, nontender, normoactive bowel sounds. EXTREMITIES: Normal range of motion, no edema. No clubbing or cyanosis. Peripheral pulses intact and strong. Right groin: Clean, dry and intact. Soft, nontender and no signs of hematoma. - Labs CBC & Chem 7: 04/28/17 06:21 04/28/17 06:21 Labs: Abnormal Lab Results - Last 24 Hours (Table) 04/28/17 Range/Units 06:21 Carbon Dioxide 35 H (22-30) mmol/L Assessment and Plan Plan: ASSESSMENT 1. Atypical chest pain. 2. History of essential hypertension 3. Small pericardial effusion, possible pericarditis PLAN Femoral access site appears clean, dry and intact. There is no sign of hematoma or bleeding. Patient denies pain to that area. From a cardiac standpoint she is stable to discharge home. She will follow-up with Dr. JEAN Han in the office next week. She should continue with colchicine 0.3 mg by mouth twice a day for 14 days. Nurse Practitioner note has been reviewed, I agree with a documented findings and plan of care. Patient was seen and examined. .
== END 2017-04-28 14:07 | disposition home or self-care (01) ==
LOC: EC 10:10 → 3OBS 13:12
PROVIDERS: ADMIT Internal Medicine; ATTEND Internal Medicine
DX: R07.89 Other chest pain (principal); M19.011 Primary osteoarthritis, right shoulder; I25.10 Atherosclerotic heart disease of native coronary artery without angina pectoris; I25.82 Chronic total occlusion of coronary artery; I31.3 Pericardial effusion (noninflammatory); M15.9 Polyosteoarthritis, unspecified; N32.81 Overactive bladder; F17.210 Nicotine dependence, cigarettes, uncomplicated; I10 Essential (primary) hypertension; J45.909 Unspecified asthma, uncomplicated; E78.5 Hyperlipidemia, unspecified; R35.0 Frequency of micturition; Z99.81 Dependence on supplemental oxygen; Z86.73 Personal history of transient ischemic attack (TIA), and cerebral infarction without residual deficits; Z86.711 Personal history of pulmonary embolism; Z79.899 Other long term (current) drug therapy; Z88.0 Allergy status to penicillin; Z82.49 Family history of ischemic heart disease and other diseases of the circulatory system; Z83.3 Family history of diabetes mellitus
CPT/HCPCS: 96365 ×2; 96361 ×3; 96375 ×2; 96376 ×6; 99285; 99156; 99157; 96366 ×2; 36415; 93005; 93017; 93306; 97161; 93458; 85379; 80061; 80053; 80048 ×3; 82550; 82553; 84484; 85025 ×4; 85610; 85730 ×3; 71020; 73030; 78452; G0378 ×4; C1760; C1894; C1769 ×2; A9500; J2001; J2250; J2270 ×4; J1200; J1644 ×2; J2785; Q9967

== ENCOUNTER → 2017-06-03 | Outpatient (CLI) | payer OTHER ==
--- NOTE | 2017-06-06 10:29 | MM ---
Reason for exam: screening (asymptomatic). Last mammogram was performed 1 year and 1 month ago. History: Patient is postmenopausal. Benign excisional biopsy of the left breast. Physical Findings: A clinical breast exam by your physician is recommended on an annual basis and results should be correlated with mammographic findings. MG Screening Mammo w CAD Bilateral CC and MLO view(s) were taken. Prior study comparison: May 17, 2016, bilateral MG screening mammo w CAD. February 17, 2015, bilateral MG screening mammo w CAD. The breast tissue is almost entirely fat. Finding: There are typically benign vascular, dystrophic, round, linear calcifications in both breasts. There is no discrete abnormality. ASSESSMENT: Benign, BI-RAD 2 RECOMMENDATION: Routine screening mammogram of both breasts in 1 year.
== END | disposition home or self-care (01) ==
LOC: RADMAMWWP 10:21
PROVIDERS: ATTEND Internal Medicine
DX: Z12.31 Encounter for screening mammogram for malignant neoplasm of breast (principal)

== ENCOUNTER 2017-08-08 14:36 | Emergency (ER) | payer MEDICARE, OTHER ==
[2017-08-08] MEDS ORDERED: HYDROmorphone 1 MG/ML 1 ML SYRINGE IVP STA (14:51)
[2017-08-08] MEDS ORDERED: HYDROmorphone 2 MG/ML 1 ML SYRINGE IVP STA (15:52)
--- NOTE | 2017-08-08 15:55 | ED ---
Back Pain HPI - General Chief Complaint: Back Pain/Injury Stated Complaint: BACK PAIN Time Seen by Provider: 08/08/17 14:42 Source: EMS Limitations: no limitations - History of Present Illness Initial Comments: This 67-year-old Afro-Lithuanian female presents with a complaint of some low back pain. She states that it started approximately 1 week ago. She denies any actual injuries. She states that it is fairly severe. It is into her inferior back to the sacral region. She states that she normally will take Jasper for her arthritis pains but this has not been alleviating her back pain. She states that it is severe to the point that it causes her excruciating pain with any attempts at ambulation and that she's been unable to get to the bathroom. She denies any fevers or chills. She relates that she has had back pain in the past on occasion presumably due to arthritis but this is more severe than she has ever had. She states that the pain seems radiate down both legs. There's been no loss of bowel or bladder. No other complaints or modifying factors. - Related Data Home Medications Medication Instructions Recorded Confirmed Amitriptyline HCl [Elavil] 100 mg PO HS 12/25/15 08/08/17 HYDROcodone/APAP 7.5-325MG [Jasper 1 tab PO BID PRN 12/25/15 08/08/17 7.5-325] amLODIPine BESYLATE [Norvasc] 10 mg PO DAILY 12/25/15 08/08/17 Docusate [Colace] 100 mg PO BID PRN 04/25/17 08/08/17 Ergocalciferol [Vitamin D2 50,000 unit PO TH 04/25/17 08/08/17 (DRISDOL)] Oxybutynin ER [Ditropan Xl] 10 mg PO DAILY 04/25/17 08/08/17 Cyclobenzaprine [Flexeril] 5 mg PO BID PRN 08/08/17 08/08/17 Naproxen 500 mg PO BID PRN 08/08/17 08/08/17 Previous Rx's Medication Instructions Recorded Metoprolol Tartrate [Lopressor] 25 mg PO BID #60 tab 04/28/17 predniSONE 20 mg PO BID #10 tab 08/08/17 Allergies Allergy/AdvReac Type Severity Reaction Status Date / Time Penicillins Allergy Rash/Hives- Verified 08/08/17 15:20 SWELLS UP AT SITE Review of Systems ROS Statement: Those systems with pertinent positive or pertinent negative responses have been documented in the HPI. ROS Other: All systems not noted in ROS Statement are negative. Past Medical History Past Medical History: Asthma, CVA/TIA, Hyperlipidemia, Hypertension, Osteoarthritis (OA), Pulmonary Embolus (PE) Additional Past Medical History / Comment(s): HX PE 2009 and has completed Coumadin treatment, 2 TIAs, PT STATES USES OXYGEN AT 2L/NC FOR 30 MINUTES TO 1 HOUR DAILY, URINE FREQUENCY & INCONTINENCE- WEARS A PULL UP- LT ARM DEFECTIVE FROM - RT ARM &. 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 History of Any Multi-Drug Resistant Organisms: None Reported Past Surgical History: Hysterectomy, Orthopedic Surgery Additional Past Surgical History / Comment(s): YURIY. FEET TOES AMPUTATED,benign tumors removed from L breast and L shoulder, colonoscopy, back injections for pain. Past Anesthesia/Blood Transfusion Reactions: No Reported Reaction Past Psychological History: No Psychological Hx Reported Smoking Status: Current some day smoker Past Alcohol Use History: None Reported Past Drug Use History: None Reported - Past Family History Father Family Medical History: CVA/TIA, Hypertension, Myocardial Infarction (ME) Mother Family Medical History: CVA/TIA, Diabetes Mellitus, Hypertension, Myocardial Infarction (ME) Sister(s) Additional Family Medical History / Comment(s): Sister #1-Cerebal Palsy , Sister #2 DM, HTN, General Exam - General Exam Comments Initial Comments: GENERAL: The patient is well nourished and well hydrated. VITAL SIGNS: Heart rate, blood pressure, respiratory rate reviewed as recorded in nurse's notes. EYES: Pupils are round and reactive. Extraocular movements are intact. No conjunctival / lid redness or swelling. ENT: No external evidence of injury, swelling, or ecchymosis. Airway is patent. Throat is clear. NECK: Nontender. No swelling or evidence of injury. No subcutaneous emphysema. Trachea is midline. No thyroid mass. HEART: Regular rate and rhythm. Good peripheral pulses. LUNGS/CHEST: Breath sounds clear and equal bilaterally. No rales, rhonchi, or wheezes. No ecchymosis, subcutaneous emphysema, or tenderness. ABDOMEN: Abdomen soft without tenderness. No palpable masses or organomegaly. No peritoneal signs. No abdominal wall swelling or ecchymosis. EXTREMITIES: No extremity tenderness. Normal muscle tone and function. There is tenderness present into the inferior most portion of the lumbar spine and into the sacral region and coccyx. There is no associated rash or evidence of abscess. NEUROLOGIC: Sensation is grossly intact. Cranial nerve exam reveals face is symmetrical, tongue is midline, speech is clear. SKIN: No abrasions or ecchymosis is noted. No induration or masses noted. PSYCHIATRIC: Alert and oriented. Appropriate behavior and judgment. Limitations: no limitations Course Vital Signs 08/08/17 08/08/17 08/08/17 14:38 15:58 17:35 Temperature 98.1 F 96.9 F L Pulse Rate 79 75 83 Respiratory 18 18 18 Rate Blood Pressure 176/85 190/85 171/72 O2 Sat by Pulse 97 95 93 L Oximetry Medical Decision Making - Medical Decision Making The patient was seen and examined. All diagnostics were reviewed. An IV is established she receives some Dilaudid intravenously for pain. She later receives some Toradol and Solu-Medrol intravenously. She is sleeping on recheck and in no distress. The patient had a laboratory analysis which was essentially all within normal limits. The computed tomography scan of the pelvis as well as the lumbar spine shows significant degenerative changes of the lumbar spine with some spinal stenosis. She also has degenerative changes of her bilateral hips. There is no fracture or osseous disruption. Overall, it is felt as though she is stable for discharge. An ambulation trial is completed. She is counseled regarding her diagnosis is felt as though she may benefit from follow-up with orthopedic spine surgery as well has a trial of steroids and increase of her Jasper. - Lab Data Result diagrams: 08/08/17 15:44 08/08/17 15:44 Lab Results 08/08/17 08/08/17 Range/Units 15:44 15:44 WBC 5.6 (3.8-10.6) k/uL RBC 4.54 (3.80-5.40) m/uL Hgb 14.3 (11.4-16.0) gm/dL Hct 44.5 (34.0-46.0) % MCV 97.9 (80.0-100.0) fL MCH 31.4 (25.0-35.0) pg MCHC 32.1 (31.0-37.0) g/dL RDW 14.0 (11.5-15.5) % Plt Count 246 (150-450) k/uL Neutrophils % 39 % Lymphocytes % 50 % Monocytes % 7 % Eosinophils % 1 % Basophils % 0 % Neutrophils # 2.2 (1.3-7.7) k/uL Lymphocytes # 2.8 (1.0-4.8) k/uL Monocytes # 0.4 (0-1.0) k/uL Eosinophils # 0.1 (0-0.7) k/uL Basophils # 0.0 (0-0.2) k/uL Sodium 143 (137-145) mmol/L Potassium 3.6 (3.5-5.1) mmol/L Chloride 106 (98-107) mmol/L Carbon Dioxide 27 (22-30) mmol/L Anion Gap 10 mmol/L BUN 10 (7-17) mg/dL Creatinine 0.70 (0.52-1.04) mg/dL Est GFR (MDRD) Af Amer >60 (>60 ml/min/1.73 sqM) Est GFR (MDRD) Non-Af >60 (>60 ml/min/1.73 sqM) Glucose 80 (74-99) mg/dL Calcium 9.5 (8.4-10.2) mg/dL Total Bilirubin 0.4 (0.2-1.3) mg/dL AST 29 (14-36) U/L ALT 32 (9-52) U/L Alkaline Phosphatase 79 (38-126) U/L Total Protein 6.7 (6.3-8.2) g/dL Albumin 3.8 (3.5-5.0) g/dL Disposition Clinical Impression: Lumbar and sacral arthritis, Low back pain, Hypertension, Bilateral hip joint arthritis Disposition: HOME SELF-CARE Condition: Good Instructions: Acute Low Back Pain (ED), Osteoarthritis (ED), Lumbar Spinal Stenosis (ED), Chronic Back Pain (ED) Prescriptions: predniSONE 20 mg PO BID #10 tab Referrals: Konrad Walker MD [Primary Care Provider] - 1-2 days Cassandra Jain DO [Doctor of Osteopathic Medicine] - 08/15/17 Time of Disposition: 18:03
[2017-08-08 15:56] LABS: Basophils % (A) 0 %; CH 32.1; Eosinophils # (A) 0.1 k/uL (0-0.7); Eosinophils % (A) 1 %; HCT 44.5 % (34.0-46.0); HDW 2.56; HGB 14.3 gm/dL (11.4-16.0); Luc # (Auto) 0.18; Luc % (Auto) 3; Lymphocytes # (A) 2.8 k/uL (1.0-4.8); Lymphocytes % (A) 50 %; MCH 31.4 pg (25.0-35.0); MCHC 32.1 g/dL (31.0-37.0); MCV 97.9 fL (80.0-100.0); Mean Platelet Volume 7.4; Monocytes # (A) 0.4 k/uL (0-1.0); Monocytes % (A) 7 %; Neutrophils # (A) 2.2 k/uL (1.3-7.7); Neutrophils % (A) 39 %; RBC 4.54 m/uL (3.80-5.40); WBC 5.6 k/uL (3.8-10.6)
[2017-08-08 16:11] LABS: ALT 32 U/L (9-52); AST 29 U/L (14-36); Alkaline Phosphatase 79 U/L (38-126); Anion Gap 10 mmol/L; Blood Urea Nitrogen 10 mg/dL (7-17); Calcium 9.5 mg/dL (8.4-10.2); Carbon Dioxide 27 mmol/L (22-30); Chloride 106 mmol/L (98-107); Glucose 80 mg/dL (74-99); Non-African American GFR(MDRD) >60 (>60 ml/min/1.73 sqM); Potassium 3.6 mmol/L (3.5-5.1); Sodium 143 mmol/L (137-145); Total Bilirubin 0.4 mg/dL (0.2-1.3); Total Protein 6.7 g/dL (6.3-8.2)
--- NOTE | 2017-08-08 17:01 | CT ---
EXAMINATION TYPE: CT pelvis wo con DATE OF EXAM: 08/08/2017 COMPARISON: NONE HISTORY: Lower back and pelvic pain x7 days. CT DLP: 1326 mGycm Automated exposure control for dose reduction was used. FINDINGS: There is extensive facet arthropathy in the lower lumbar spine. Sacroiliac joints are intact. I see n o focal bone destruction. There is hypertrophic spurring of the acetabula. The proximal femurs are in tact. I see no pelvic fracture. IMPRESSION: SPONDYLOTIC CHANGES IN THE LUMBAR SPINE. HYPERTROPHIC DEGENERATIVE CHANGES ARE PRESENT IN BOTH HIP MECHE INTS. NO FRACTURE SEEN.
--- NOTE | 2017-08-08 17:12 | CT ---
EXAMINATION TYPE: CT lumbar spine wo con DATE OF EXAM: 08/08/2017 4:47 PM COMPARISON: NONE HISTORY: Lower back and pelvic pain x7 days. CT DLP: 1326 mGycm Automated exposure control for dose reduction was used. Unenhanced CT of the lumbar spine was performed. Bone and soft tissue window settings are submitted as well as coronal and sagittal reconstructions. The lumbar vertebra have normal alignment. Disc spaces are fairly normal. There is hypertrophic facet arthropathy at L4-5 and L5-S1. There is moderate bony spinal stenosis due to the facet arthropathy a t L5-S1, L4-5. I see no focal bone destruction. Abdominal aorta is atheromatous. Sacroiliac joints ap pear intact. There is no paraspinal mass. There is probably a posterior disc herniation at L4-5 on th e left side contributing to the spinal stenosis. CONCLUSION: Spondylotic changes with significant facet arthropathy at L4-5 and L5-S1. Moderate bony spinal stenos is. No fracture. Bilateral L4-5 and L5-S1 neural foraminal stenosis due to facet arthropathy.
[2017-08-08] MEDS ORDERED: methylPREDNISolone SOD SUCCI 125 MG/2 ML VIAL IV STA (17:59)
[2017-08-08] MEDS ORDERED: KETOROLAC 30 MG/ML 1 ML VIAL IVP STA (17:59)
[2017-08-08] MEDS ORDERED: LABETALOL 5 MG/ML VIAL MDV IVP STA (18:26)
[2017-08-08] MEDS ORDERED: hydrALAZINE HCL 20 MG/ML 1 ML VIAL IVP STA (19:15)
[2017-08-08 19:30] VITALS: RESP 18
--- NOTE | 2017-08-08 19:38 | ED ---
Medical Decision Making - Lab Data Result diagrams: 08/08/17 15:44 08/08/17 15:44 Lab Results 08/08/17 08/08/17 Range/Units 15:44 15:44 WBC 5.6 (3.8-10.6) k/uL RBC 4.54 (3.80-5.40) m/uL Hgb 14.3 (11.4-16.0) gm/dL Hct 44.5 (34.0-46.0) % MCV 97.9 (80.0-100.0) fL MCH 31.4 (25.0-35.0) pg MCHC 32.1 (31.0-37.0) g/dL RDW 14.0 (11.5-15.5) % Plt Count 246 (150-450) k/uL Neutrophils % 39 % Lymphocytes % 50 % Monocytes % 7 % Eosinophils % 1 % Basophils % 0 % Neutrophils # 2.2 (1.3-7.7) k/uL Lymphocytes # 2.8 (1.0-4.8) k/uL Monocytes # 0.4 (0-1.0) k/uL Eosinophils # 0.1 (0-0.7) k/uL Basophils # 0.0 (0-0.2) k/uL Sodium 143 (137-145) mmol/L Potassium 3.6 (3.5-5.1) mmol/L Chloride 106 (98-107) mmol/L Carbon Dioxide 27 (22-30) mmol/L Anion Gap 10 mmol/L BUN 10 (7-17) mg/dL Creatinine 0.70 (0.52-1.04) mg/dL Est GFR (MDRD) Af Amer >60 (>60 ml/min/1.73 sqM) Est GFR (MDRD) Non-Af >60 (>60 ml/min/1.73 sqM) Glucose 80 (74-99) mg/dL Calcium 9.5 (8.4-10.2) mg/dL Total Bilirubin 0.4 (0.2-1.3) mg/dL AST 29 (14-36) U/L ALT 32 (9-52) U/L Alkaline Phosphatase 79 (38-126) U/L Total Protein 6.7 (6.3-8.2) g/dL Albumin 3.8 (3.5-5.0) g/dL Disposition Clinical Impression: Lumbar and sacral arthritis, Low back pain, Hypertension, Bilateral hip joint arthritis Disposition: HOME SELF-CARE Condition: Good Instructions: Osteoarthritis (ED), Lumbar Spinal Stenosis (ED), Acute Low Back Pain (ED), Chronic Back Pain (ED), Chronic Hypertension (ED) Prescriptions: Hydrochlorothiazide 25 mg PO DAILY #30 tablet predniSONE 20 mg PO BID #10 tab Referrals: Cassandra Jain DO [Doctor of Osteopathic Medicine] - 08/15/17 Konrad Walker MD [Primary Care Provider] - 1-2 days Time of Disposition: 19:38
[2017-08-08 19:56] VITALS: BP 117/84; PULSE 72; TEMP 97.8
== END 2017-08-08 19:57 | disposition home or self-care (01) ==
LOC: SUPCPDRO 14:36 → EC 14:36
DX: M16.0 Bilateral primary osteoarthritis of hip (principal); M46.97 Unspecified inflammatory spondylopathy, lumbosacral region; I10 Essential (primary) hypertension; E78.5 Hyperlipidemia, unspecified; Z86.711 Personal history of pulmonary embolism; Z86.73 Personal history of transient ischemic attack (TIA), and cerebral infarction without residual deficits; F17.200 Nicotine dependence, unspecified, uncomplicated; Z79.899 Other long term (current) drug therapy; Z88.0 Allergy status to penicillin
CPT/HCPCS: 99284; 96374; 96375 ×4; 36415; 80053; 85025; 72192; 72131; J1170; J0360; J2930; J1885